=== PATIENT | female | born 1990 | race Caucasian/White ===

== ENCOUNTER → 2022-09-22 07:34 | Outpatient (CLI) | payer OTHER, SELFPAY ==
[2022-09-22 08:15] LABS: Add Manual Diff / Slide Review NO; Basophils Absolute Auto 0 /uL (0-100); Basophils Percent Auto 0.4 % (0-2); Eosinophils Absolute Auto 100 /uL (0-450); Eosinophils Percent Auto 1.2 % (2-4); Hematocrit 31.1 % (36-46); Hemoglobin 9.6 g/dL (12.0-16.0); Lymphocytes Absolute Auto 2500 /uL (1100-4500); Lymphocytes Percent Auto 26.3 % (25-40); Mean Corpuscular Hemoglobin 20.2 PG (26-34); Mean Corpuscular Volume 65.1 fL (80-100); Monocytes Absolute Auto 500 /uL (0-900); Neutrophils Absolute Auto 6400 /uL (1500-7000); Neutrophils Percent Auto 67.1 % (50-75); Platelet Count 389 X10^3/uL (150-400); Red Blood Cell Count 4.78 X10^6/uL (4.0-5.2); Red Cell Distribution Width 18.2 % (11.6-14.8); White Blood Cell Count 9.5 X10^3/uL (4.5-11.0)
[2022-09-22 08:21] LABS: Hemoglobin A1C% w Est Avg Glu 5.3 % (4.0-6.0)
[2022-09-22 08:25] LABS: Microcytosis 2+
[2022-09-22 08:29] LABS: Erythrocyte Sedimentation Rate 34 MM/HR (0-20)
[2022-09-22 08:45] LABS: Alanine Aminotransferase 23 IU/L (<35); Albumin 3.9 g/dL (3.5-5.0); Albumin Globulin Ratio 1.1 (1.0-2.8); Alkaline Phosphatase 91 U/L (38-126); Aspartate Aminotransferase 25 IU/L (14-36); BUN Creatinine Ratio 11.1 (6-22); Bilirubin Total 0.4 mg/dL (0.2-1.3); Blood Urea Nitrogen 7 mg/dL (7-17); C-Reactive Protein Quant 2.9 mg/dL (<1.0); Calcium 8.7 mg/dL (8.4-10.2); Carbon Dioxide 23 mmol/L (22-32); Chloride 102 mmol/L (98-107); Cholesterol 203 mg/dL (140-199); Estimated Glomerular Filt Rate > 60 mL/min (>60); Globulin 3.7 g/dL (1.7-4.1); Glucose 97 mg/dL (70-100); HDL Cholesterol 62 mg/dL (40-60); HEMOLYSIS < 15 (0-50); LDL Cholesterol Calculated 92 mg/dL (<100); Potassium 4.1 mmol/L (3.4-5.1); Sodium 138 mmol/L (137-145); Total Protein 7.6 g/dL (6.3-8.2); Triglycerides 246 mg/dL (35-150)
[2022-09-22 08:47] LABS: Follicle Stimulating Hormone 5.46 mIU/mL; Luteinizing Hormone 9.24 mIU/mL; Progesterone, Total 0.78 ng/mL
[2022-09-22 09:05] LABS: TSH w/ Reflex to FT4 4.56 uIU/mL (0.47-4.68)
[2022-09-24 07:23] LABS: Insulin Level Total 32.5 uIU/mL (2.6-24.9)
[2022-09-29 14:14] LABS: Testosterone % Fr + Wkly bound 8.3 % (3.0-18.0); Testosterone Fr+Wkly bound 4.2 ng/dL (0.0-9.5); Testosterone, Total 50.2 ng/dL (10.0-55.0)
== END ==
PROVIDERS: PCP Family Medicine; Referring Provider Family Medicine; Visit Provider Family Medicine
DX: R63.5 Abnormal weight gain (principal); N92.6 Irregular menstruation, unspecified; E88.81 Metabolic syndrome and other insulin resistance; E78.01 Familial hypercholesterolemia; R19.7 Diarrhea, unspecified; M79.7 Fibromyalgia
CPT/HCPCS: 36415; 80053; 80061; 82670; 83001; 83002; 83036; 83525; 84144; 84146; 84270; 84403; 84443; 85025; 85651; 86140

== ENCOUNTER → 2022-11-23 07:11 | Outpatient (CLI) | payer OTHER, SELFPAY ==
[2022-11-23 08:40] LABS: Iron 16 ug/dL (37-170); Uric Acid 5.2 mg/dL (2.5-6.2)
[2022-11-23 08:49] LABS: Rheumatoid Factor < 8.6 IU/mL (<12.0)
[2022-11-23 08:52] LABS: Percent Iron Saturation 3 % (15-50); Total Iron Binding Capacity 586 ug/dL (265-497)
[2022-11-23 08:57] LABS: Erythrocyte Sedimentation Rate 33 MM/HR (0-20)
[2022-11-23 08:58] LABS: Prolactin 27.2 ng/mL (3.0-18.6)
[2022-11-23 09:16] LABS: Ferritin 4 ng/mL (6-137)
[2022-11-26 16:43] LABS: ANA Screen, IFA Negative (.)
== END ==
PROVIDERS: PCP Family Medicine; Referring Provider Family Medicine; Visit Provider Family Medicine
DX: D64.9 Anemia, unspecified (principal); R70.0 Elevated erythrocyte sedimentation rate; R79.82 Elevated C-reactive protein (CRP); M79.10 Myalgia, unspecified site; R79.89 Other specified abnormal findings of blood chemistry
CPT/HCPCS: 36415; 82728; 83540; 83550; 84146; 84550; 85651; 86038; 86430

== ENCOUNTER → 2023-02-16 13:14 | Outpatient (CLI) | payer OTHER, SELFPAY ==
--- NOTE | 2023-02-16 | DI.MRI.S_ITS ---
PROCEDURE: MR BRAIN (PITUITARY) WWO CON INDICATIONS: Hyperprolactinemia TECHNIQUE: Noncontrast sagittal and axial FLAIR, axial gradient echo, axial diffusion and ADC through the brain. Thin-slice sagittal and coronal T1 spin echo, coronal T2 fast spin echo through the pituitary. After the administration contrast, optional dynamic coronal T1 spin echo, thin-slice coronal and sagittal T1 spin echo images through the pituitary fossa; axial and coronal and sagittal T1 spin echo with fat saturation through the brain. COMPARISON: None. FINDINGS: Image quality: Excellent. Pituitary Gland: Within the posterior aspect of the pituitary gland, just to the left of the midline, there is a relatively poorly enhancing lesion that measures up to 4 mm, as seen on series 26, image 120 and on series 22, image 6. The pituitary gland demonstrates normal signal and bulk. On the postcontrast imaging, no additional masses or abnormally enhancing areas are seen. The pituitary stalk and infundibulum have an unremarkable appearance. A normal appearing pituitary bright spot is seen posteriorly on the precontrast sagittal T1-weighted images. The optic chiasm and the ventral forebrain have an unremarkable appearance. CSF Spaces: Ventricles are normal in size and shape. Basal cisterns are patent. No extra-axial fluid collections. Brain: No intracranial bleeds or mass effects. No abnormal intracranial enhancement. Stout-white matter interface is intact. Diffusion weighted images demonstrate no acute ischemic insults. Brainstem is normal. Normal intravascular flow voids are present. Skull and face: Calvarial marrow is normal in signal. Orbits appear normal. Sinuses: Sinuses and mastoids are clear. IMPRESSION: 4 mm focus of poor enhancement seen involving the posterior left aspect of the pituitary gland. Differential diagnosis includes pituitary microadenoma. This could also represent a cyst. - If clinically appropriate, please consider follow-up pituitary protocol MRI in 6-12 months for further evaluation. Dictated by: Hermann Ryan M.D. on 02/16/2023 at 15:19 Approved by: Hermann Ryan M.D. on 02/16/2023 at 15:27
== END ==
PROVIDERS: PCP Registered Nurse; Referring Provider Registered Nurse; Visit Provider Registered Nurse
DX: E22.1 Hyperprolactinemia (principal)
CPT/HCPCS: 70553; A9579

== ENCOUNTER → 2023-06-18 09:20 | Outpatient (CLI) | payer OTHER, SELFPAY | PROVIDERS: PCP Registered Nurse; Visit Provider Nurse Practitioner Family | DX: R30.0 Dysuria (principal) | CPT/HCPCS: 87077; 87086; 87186; 87210 ==